=== PATIENT | female | born 1975 | race Caucasian/White ===

== ENCOUNTER 2016-11-06 19:42 | Emergency (ER) | payer OTHER ==
[~2016-11-06] VITALS: Ht 152.4 cm; Wt 85.9 kg
[~2016-11-06 19:42] MED LIST: CALC500T72 OR; FRRG PO; LRT5 PO; MULT-506 PO
[2016-11-06 19:43] VITALS: TEMP 37.1; Ht 152.4 cm; Wt 85.9 kg
[2016-11-06] MEDS ORDERED: CYAN10005 PO (20:01)
[2016-11-06] MEDS ORDERED: [UNRECOGNIZED DRUG - OTHER] PO (20:01)
[2016-11-06] MEDS ORDERED: CLR10 PO (20:01)
[2016-11-06] MEDS ORDERED: IBUPROFEN 200 MG TAB PO STA (20:21)
[2016-11-06] MEDS ORDERED: ACETAMINOPHEN 500 MG TAB PO STA (20:21)
--- NOTE | 2016-11-06 20:47 | DIAGNOSTIC IMAGING REPORT ---
L SHOULDER MIN 2 VIEWS ROUTINE CLINICAL HISTORY: shoulder pain pain COMPARISON: None. DISCUSSION: The bones and joint spaces appear intact. There is no evidence of fracture, dislocation or bony disease. There is no evidence for soft tissue swelling. IMPRESSION: Negative study. The above report was generated using voice recognition software. It may contain grammatical, syntax or spelling errors. Electronically signed by: Mathieu Garner M.D. 11/06/2016 8:45 PM Dictated Date/Time: 11/06/2016 8:45 PM
[2016-11-06 21:12] LABS: BASO % 0.3 %; BASO ABS # 0.03 K/uL (0-0.2); COMPLETE YES; EOS % 1.3 %; HEMATOCRIT 39.4 % (37-47); IG% 0.2 %; LYMPH ABS # 3.72 K/uL (1.2-3.4); MEAN CELL VOLUME 85.3 fL (80-100); MEAN CORPUSCULAR HEMOGLOBIN 29.7 pg (25-34); MEAN CORPUSCULAR HGB CONC 34.8 g/dl (32-36); MEAN PLATELET VOLUME 9.4 fL (7.4-10.4); MONO % 7.1 %; NEUT % 51.1 %; PLATELET COUNT 296 K/uL (130-400); RED BLOOD COUNT 4.62 M/uL (4.2-5.4); WHITE BLOOD COUNT 9.29 K/uL (4.8-10.8)
[2016-11-06 21:29] LABS: CALCIUM 9.2 mg/dl (8.5-10.1); CREATININE 0.83 mg/dl (0.60-1.20); POTASSIUM 3.6 mmol/L (3.5-5.1)
--- NOTE | 2016-11-06 21:38 | EMERGENCY ROOM VISIT NOTE ---
History Report prepared by Jennifer: Bobby Wild Under the Supervision of: Dr. Ermias Li M.D. First contact with patient: 19:47 Chief Complaint: ARM PAIN Stated Complaint: PAIN AND NUMBNESS IN LEFT ARM History of Present Illness The patient is a 41 year old white female with a past medical history who presents to the ED with a cc of worsening left arm pain and numbness beginning this morning. Numbness radiates from her hand to her shoulder. Describes pain as "achy". Symptoms worsened with gripping. Woke up with her symptoms. Positive left arm weakness. No history of similar symptoms in the arm. History of sciatica in lower extremities. Notes that she is right handed. No recent straining, or injury. 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 Typically rotates sides while sleeping. Negative cough, chest pain, SOB, no breast or shoulder swelling , fevers, diarrhea, urinary symptoms, joint pain, or chills. Cold-like symptoms earlier in the week. No personal history of blood clots. No family history of early cardiac disease. Source of History: patient Onset: This morning Position: arm (left) Quality: other (pain and numbness) Timing: worsening Modifying Factors (Worsening): other (gripping) Associated Symptoms: + weakness (LUE), No fevers, No chills, No cough, No chest pain, No SOB, No diarrhea, No urinary symptoms Note: Negative: breast or shoulder swelling, or joint pain. Review of Systems See HPI for pertinent positives and negatives. A total of ten systems were reviewed and were otherwise negative. Past Medical & Surgical Medical Problems: (1) Sciatica Family History No pertinent family history stated. Social History Smoking Status: Never Smoker Housing Status: lives with family Occupation Status: employed Current/Historical Medications Scheduled Cyanocobalamin (Vitamin B-12), 1,000 MCG PO DAILY Loratadine (Claritin), 10 MG PO DAILY [New Life], 1 TAB PO DAILY Scheduled PRN Oxycodone Immediate Rel Tab (Roxicodone Ir), 1 TAB PO TID PRN for Pain Tramadol (Ultram), 50 MG PO Q8H PRN for Pain Allergies Coded Allergies: Penicillins (Unverified Allergy, Mild, ., 04/04/09) Physical Exam Vital Signs Date Time Temp Pulse Resp B/P (MAP) Pulse Ox O2 Delivery O2 Flow Rate FiO2 11/06/16 22:34 98 18 138/79 96 Room Air 11/06/16 21:24 104 18 118/71 97 Room Air 11/06/16 19:43 37.1 107 18 140/67 95 Room Air Physical Exam GENERAL: Awake, alert, well-appearing, NAD HENT: Normocephalic, atraumatic. EYES: Normal conjunctiva. Sclera non-icteric. NECK: Supple. No nuchal rigidity. FROM. RESPIRATORY: CTAB, no rhonchi, wheezing, crackles CARDIAC: RRR, no MRG ABDOMEN: Soft, NTND, BS+ MSK: No chest wall TTP, no LE edema. Mild pain with abduction of the left arm. Mild reproducible anterior shoulder pain. Maybe trace weakness in centerless grinder tender strength compared to RUE likely secondary to pain. MUR nerves intact. No swelling. NEURO: GCS 15, CN 2-12 intact, moves all 4s on command. Positive Tinel's sign on the left. SKIN: No rash or jaundice noted. Medical Decision & Procedures ER Provider Diagnostic Interpretation: X-ray: Per my interpretation, radiologist review. L SHOULDER MIN 2 VIEWS ROUTINE DISCUSSION: The bones and joint spaces appear intact. There is no evidence of fracture, dislocation or bony disease. There is no evidence for soft tissue swelling. IMPRESSION: Negative study. The above report was generated using voice recognition software. It may contain grammatical, syntax or spelling errors. Electronically signed by: Mathieu Garner M.D. 11/06/2016 8:45 PM Laboratory Results 11/06/16 21:02 Red Blood Count 4.62, Mean Corpuscular Volume 85.3, Mean Corpuscular Hemoglobin 29.7, Mean Corpuscular Hemoglobin Concent 34.8, Mean Platelet Volume 9.4, Neutrophils (%) (Auto) 51.1, Lymphocytes (%) (Auto) 40.0, Monocytes (%) (Auto) 7.1, Eosinophils (%) (Auto) 1.3, Basophils (%) (Auto) 0.3, Neutrophils # (Auto) 4.74, Lymphocytes # (Auto) 3.72, Monocytes # (Auto) 0.66, Eosinophils # (Auto) 0.12, Basophils # (Auto) 0.03 11/06/16 21:02 Test 11/06/16 21:02 11/06/16 21:09 White Blood Count 9.29 K/uL (4.8-10.8) Red Blood Count 4.62 M/uL (4.2-5.4) Hemoglobin 13.7 g/dL (12.0-16.0) Hematocrit 39.4 % (37-47) Mean Corpuscular Volume 85.3 fL (80-100) Mean Corpuscular Hemoglobin 29.7 pg (25-34) Mean Corpuscular Hemoglobin Concent 34.8 g/dl (32-36) Platelet Count 296 K/uL (130-400) Mean Platelet Volume 9.4 fL (7.4-10.4) Neutrophils (%) (Auto) 51.1 % Lymphocytes (%) (Auto) 40.0 % Monocytes (%) (Auto) 7.1 % Eosinophils (%) (Auto) 1.3 % Basophils (%) (Auto) 0.3 % Neutrophils # (Auto) 4.74 K/uL (1.4-6.5) Lymphocytes # (Auto) 3.72 K/uL (1.2-3.4) Monocytes # (Auto) 0.66 K/uL (0.11-0.59) Eosinophils # (Auto) 0.12 K/uL (0-0.5) Basophils # (Auto) 0.03 K/uL (0-0.2) RDW Standard Deviation 38.5 fL (36.4-46.3) RDW Coefficient of Variation 12.3 % (11.5-14.5) Immature Granulocyte % (Auto) 0.2 % Immature Granulocyte # (Auto) 0.02 K/uL (0.00-0.02) Anion Gap 8.0 mmol/L (3-11) Est Creatinine Clear Calc Drug Dose 85.9 ml/min Estimated GFR () 100.8 Estimated GFR (Non- 87.0 BUN/Creatinine Ratio 22.0 (10-20) Calcium Level 9.2 mg/dl (8.5-10.1) Bedside Troponin I < 0.030 ng/ml (0-0.045) Laboratory results reviewed by me Medications Administered Medications (Trade) Dose Ordered Sig/Gary Route Start Time Stop Time Status Last Admin Dose Admin Ibuprofen (Advil Tab) 400 mg NOW STAT PO 11/06/16 20:21 11/06/16 20:23 DC 9/24/17 21:20 400 MG Acetaminophen (Tylenol Tab) 1,000 mg NOW STAT PO 11/06/16 20:21 11/06/16 20:23 DC 11/06/16 21:20 1,000 MG Prednisone (PredniSONE TAB) 50 mg ONE STAT PO 11/06/16 20:21 11/06/16 20:23 DC 11/06/16 21:20 50 MG Morphine Sulfate (MoRPHine SULFATE INJ) 4 mg NOW STAT IV 11/06/16 22:18 11/06/16 22:19 DC 11/06/16 22:33 4 MG Cyclobenzaprine HCl (Flexeril Tab) 10 mg ONE STAT PO 11/06/16 22:18 11/06/16 22:19 DC 11/06/16 22:34 10 MG ECG Indication: weakness (arm) Rate (beats per minute): 94 Rhythm: normal sinus Findings: T-wave inversion (single inversion in Lead 3. ), no ectopy, other ( Normal intervals. Normal axis. No other STS changes or TWI.) ED Course 2004: The patient was evaluated in room C12B. A complete history and physical exam was performed. 2134: I reevaluated the patient. Discussed results and discharge instructions: she verbalized understanding and agreement. The patient is ready for discharge. Medical Decision The patient is a 41 year old white female with a past medical history who presents to the ED with a cc of worsening left arm pain and numbness beginning this morning. Differential diagnosis: arthritis, atypical chest pain, radiculopathy, and carpal tunnel. Patient was seen and evaluated at the bedside. Patient was complaining of some radicular type pain likely originating in the wrist and excelling upward. Patient did have mild decreased strength but it was very trace likely related to pain. Patient is not taking anything prior to arrival. Patient denied any recent injury. Patient denies any early cardiac history and does not have any additional risk factors that she is a nonsmoker has no history of hypertension and hyperlipidemia. DVT is less likely as she doesn't have any swelling or redness. She's had no other provocative issues that make this more concerning. Patient did have a positive Tinel sign and thus she may have some median nerve compression. Patient was told to continue conservative management including better ergonomics especially when she types and he is a cockup wrist splint. Patient was also told to follow-up with her PCP as well as consider physical therapy, strengthening exercises, and possibly a referral to orthopedist if she has persistent symptoms. Patient as well as negative less likely DVT. Patient heart score less than 3 was likely ACS. Patient has no other infectious symptoms. Patient also did have pain with questionable decreased centerless grinder tender strength however this was likely related to pain. Patient's strength otherwise fairly symmetric. Less likely TIA or stroke specially given her lack of other risk factors. No h/o of autoimmune disease. Patient was given strict follow-up, discharge, and return precautions. Patient reported care patient was safely discharged home. Medication Reconcilliation Current Medication List: was personally reviewed by me Blood Pressure Screening Patient's blood pressure: Elevated blood pressure Blood pressure disposition: Elevated BP felt to be situational Impression Primary Impression: Radiculopathy Additional Impression: Pain, arm, left Scribe Attestation The scribe's documentation has been prepared under my direction and personally reviewed by me in its entirety. I confirm that the note above accurately reflects all work, treatment, procedures, and medical decision making performed by me. Departure Information Dispostion Home / Self-Care Prescriptions Oxycodone Immediate Rel Tab (ROXICODONE IR) 5 Mg Tab 1 TAB PO TID Y for Pain, #9 TAB Prov: Ermias Li M.D. 11/06/16 Tramadol (Ultram) 50 Mg Tab 50 MG PO Q8H Y for Pain, #12 TAB Prov: Ermias Li M.D. 11/06/16 Referrals No Doctor, Assigned (PCP) Patient Instructions Carpal Tunnel Syndrome Prevent, My [facility] Additional Instructions Please return to the emergency department if you have worsening or recurrent symptoms not amenable to at-home treatment. Please call for a follow-up appointment with her primary care physician. Please take your medications as prescribed. If you have other concerns and/or complaints please feel free to also call your primary care physician's office or return the ED for further evaluation, management, and treatment. You were found to have an elevated blood pressure today (>120 sytolic or >90 diastolic). Per medicare guidelines, you need to follow up with this blood pressure screening with your Primary Care Physician (PCP). For a new PCP call [phone]. You received narcotic or benzodiazepene medication while in the emergency room today. This is an addictive medication that may cause drowziness as well as constipation. Do not drive, operate heavy machinery, or drink alcohol under the influence of this medication. You may take 600 mg Ibuprofen every 6 hours as needed for pain with food for no more than 2 consecutive days. You may take tylenol 1000mg every 6 hours as needed for pain. You may take motrin and tylenol separately or at the same time. Take tramadol for breakthrough pain. You may also take roxicodone as needed for pain. Consider PT, wrist splint, and f/u w/ your PCP for further eval and treatment. You have been examined and treated today on an emergency basis only. This is not a substitute for, or an effort to provide, complete comprehensive medical care. It is impossible to recognize and treat all injuries or illnesses in a single emergency department visit. It is therefore important that you follow up closely with [facility]. Call as soon as possible for an appointment. Thank you for your time and consideration. I look forward to speaking with you again soon. Please don't hesitate to call us if you have any questions. Problem Qualifiers Primary Impression: Radiculopathy Spinal region: unspecified Qualified Codes: M54.10 - Radiculopathy, site unspecified
[2016-11-06] MEDS ORDERED: MoRPHine SULFATE 4 MG/ML 1 ML CARP\\VIAL IV STA (22:18)
[2016-11-06] MEDS ORDERED: CYCLOBENZAPRINE HCL 5 MG TAB PO STA (22:18)
[2016-11-06 22:34] VITALS: BP 138/79; PULSE 98; O2SAT 96
[2016-11-06] MEDS ORDERED: TRAM-10 PO (22:40)
[2016-11-06] MEDS ORDERED: OXYC1TAB3 PO (22:40)
== END 2016-11-06 23:24 | disposition home or self-care (01) ==
LOC: C.EDB 19:43 → C.EDC 23:24
DX: M54.10 Radiculopathy, site unspecified (principal); M79.602 Pain in left arm

== ENCOUNTER 2020-07-31 10:43 | Inpatient (IN) ==
[2020-07-31] MEDS ORDERED: POLYETHYLENE (MIRALAX) 17 GM PACK PO PRN (11:57)
[2020-07-31] MEDS ORDERED: ONDANSETRON INJ 2 MG/ML 2 ML VIAL IV PRN (11:57)
--- NOTE | 2020-07-31 12:33 | History & Physical Report ---
Date of Service July 31, 2020 Assessment & Plan (1) Cellulitis of chest wall: This is a 45-year-old female with PMH of GERD who presents from Dr. Neville's office with worsening chest wall cellulitis. Developed rash 5 days ago in setting of hiking and fresh water swimming in [facility], possible spider bite Started on Bactrim and Keflex 4 days ago with improvement of central area but worsening redness extending into axilla, continued subjective fever, chills, headache Tachycardic at 115. Afebrile, no leukocytosis. Lyme and anaplasma serology pending. Wound and blood cultures pending CXR with no acute process. EKG pending Continue empiric abx coverage with IV Dapto, added Doxycycline for possible tick borne illness Gentle IV fluids DVT Ppx: SQ lovenox Code status: FULL PCP: Molly Dispo: Admitted to [facility] Patient seen in collaboration with Dr. Goss. Please see addendum. Admission and Anticipated Discharge Date Admission Date: July 31, 2020 History of Present Illness Chief Complaint: Worsening chest wall cellulitis Primary Care Provider: Jefry Barnes MD This is a 45-year-old female with PMH of GERD who presents from Dr. Neville's office with worsening chest wall cellulitis. [facility] where she did a lot of hiking and swimming in [place] nearby [place]. First developed a reddish purple spot on chest 5 days ago that continued to grow in size and began to open up and drain clear fluid. Had associated fever with tmax of 101 F and chills. Has also had nausea and dull headache. Thought it se emed like a spider bite but did not see any spiders or ticks. Was evaluated in [facility] on 07/29 and diagnosed with chest wall cellulitis. Was discharged on Bactrim and Keflex. Has been taking medications regularly over the past 48 hours but area of redness doubled in size. Chest wall area is sore but not itchy. Drainage has resolved. Has been taking ibuprofen for fever symptoms. Denies any lightheadedness, chest pain, SOB, palpitations, vomiting, abdominal pain, diarrhea or constipation. Allergies Allergy/AdvReac Type Severity Reaction Status Date / Time Penicillins Allergy Mild . Unverified 04/04/09 15:05 Home Medications Medication Instructions Recorded Confirmed Type cephalexin 500 mg PO Q6H 10 Days #40 cap 07/28/20 07/31/20 Rx sulfamethoxazole-trimethoprim 1 tab PO Q12H 10 Days #20 tab 07/28/20 07/31/20 Rx [Bactrim DS] Lactobacillus acidophilus 100 mmu cells PO DAILY 07/31/20 07/31/20 History [Probiotic Acidophilus] cyanocobalamin (vitamin B-12) 1,000 mcg PO DAILY 07/31/20 07/31/20 History guaifenesin [Mucinex] 600 mg PO Q12H 07/31/20 07/31/20 History loratadine 10 mg PO DAILY 07/31/20 07/31/20 History multivitamin 1 tab PO DAILY 07/31/20 07/31/20 History Past Med/Surg History Medical History (Updated 07/31/20 @ 12:47 by Angelia Morales PA-C) GERD (gastroesophageal reflux disease) Tarsal tunnel syndrome Surgical History (Updated 07/31/20 @ 14:46 by Angelia Morales PA-C) H/O foot surgery S/P LEEP Family History (Updated 07/31/20 @ 14:46 by Angelia Morales PA-C) Other Cervical cancer Diabetes Stroke Social History (Updated 07/31/20 @ 12:51 by Angelia Morales PA-C) Smoking Status: Former smoker Second Hand Exposure: No; Do You Dip or Chew Tobacco: No; Hx Alcohol Use: Yes Alcohol type: wine Alcohol Intake Frequency: 2-4 x/Month Hx Substance Use: No Preferred Language: Estonian Communication Ability: Effective Teacher Of Gifted Students Required: No Beliefs That Will Affect Care: None Current Living Situation: Spouse Feels Safe at Home: Yes Safety Concerns: Feels Safe At This Time Assistive Devices: Glasses Review of Systems Review of Systems: At least ten systems reviewed and negative except as noted in the HPI. Physical Exam Physical Exam: General Appearance: WD/WN, vitals as above, NAD, sitting up in bed, pleasant, conversing easily Head: normocephalic, atraumatic Eyes: normal inspection, PERRL, conjunctivae normal, anicteric sclerae ENT: external ear and nose normal, oropharynx normal Neck: normal visual inspection, trachea midline, no thyromegaly Respiratory: normal respiratory effort, lungs clear to auscultation, no wheeze, rales, rhonchi. No accessory muscle use Cardiovascular: tachycardic rate, regular rhythm, no murmur appreciated, normal peripheral pulses, no BLE edema. Vessels: no JVD Abdomen/GI: normal bowel sounds, soft, nontender, no hepatosplenomegaly Extremities/Musculoskeletal: no cyanosis or clubbing, extremities motor strength 5/5 Neurologic: PERRL, EOMI, accommodation nl, no face palsy, no dysarthria, CN's II-XI intact bilaterally and moves all extremities Psychiatric: A+Ox3, euthymic affect Skin: normal color, warm/dry + R upper chest wall with small ulcerated lesion and surrounding intact vesicles with erythema extending [id number] into axilla. No LAD, no drainage. Warm to touch Results & Data Results & Data ([facility]) Laboratory Results Short CBC 07/31/20 Range/Units 13:11 WBC 6.28 (4.8-10.8) K/uL Hgb 12.7 (12.0-16.0) g/dL Hct 37.3 (37-47) % Plt Count 276 (130-400) K/uL BMP 07/31/20 13:11 Sodium 136 Potassium 4.3 Chloride 103 Carbon Dioxide 25 BUN 11 Creatinine 0.63 Glucose 81 Calcium 8.7 Liver Function 07/31/20 Range/Units 13:11 Total Bilirubin 0.3 (0.2-1) mg/dl AST 21 (15-37) U/L ALT 31 (12-78) U/L Alkaline Phosphatase 64 (45-117) U/L Albumin 4.0 (3.4-5.0) gm/dl Diagnostic Findings Chest X-Ray 07/31/20 12:02 XR chest 1V portable HISTORY: Admission chest x-ray. Spider bite. Right shoulder pain. COMPARISON: None. FINDINGS: The lungs are clear. Cardiac silhouette is normal in size. No pleural effusions. No pneumothorax. IMPRESSION: No acute process. ACT 112: Negative or not required by law. Electronically signed by: Rayshawn Wallace M.D. 07/31/2020 2:19 PM Code Status & VTE Plan VTE Prophylaxis Plan VTE Prophylaxis will be ordered: Yes Supervising Physician Co-Signing Physician Notes I have seen and examined the patient and have discussed the case with the provider above. I agree with the assessment and plan as stated. 45 yo F presenting with fevers, malaise and chest rash after visiting [facility] and being out in the [place]. Bactrim and Keflex was not helping her infection which has become more of a cellulitis/erythema migrans picture. No GI symptoms at this time. Tachycardic but no sepsis. Physical exam reveals palm-sized rash on the right lateral anterior chest wall with a central crusted lesion, very slight serous drainage. The wound is reportedly sore but not painful. Some cervical tenderness to lymph nodes but no significant cervical or axillary LAD present. Tachycardic with no murmurs, gallops or rubs heard on auscultation. Physical exam is otherwise normal. Agree with MRSA coverage with Dapto at this time and the addition of doxycycline given the appearance consistent with erythema migrans and possibility of rickettsial illness. DO Wolfgang
[2020-07-31 13:31] LABS: Basophils # (auto) 0.02 K/uL (0-0.2); Basophils % (auto) 0.3 %; Eosinophils # (auto) 0.26 K/uL (0-0.5); Eosinophils % (auto) 4.1 %; Hematocrit (blood only) 37.3 % (37-47); Hemoglobin 12.7 g/dL (12.0-16.0); Lymphocytes % (auto) 19.1 %; Mean Corpuscular Hemoglobin 29.7 pg (25-34); Mean Corpuscular Volume 87.4 fL (80-100); Mean Platelet Volume 9.5 fL (7.4-10.4); Monocytes # (auto) 0.86 K/uL (0.11-0.59); Monocytes % (auto) 13.7 %; Neutrophils # (auto) 3.94 K/uL (1.4-6.5); Neutrophils % (auto) 62.8 %; Platelet Count 276 K/uL (130-400); RDW Coefficient of Variation 12.4 % (11.5-14.5); RDW Standard Deviation 39.9 fL (36.4-46.3); Red Blood Count 4.27 M/uL (4.2-5.4); White Blood Count 6.28 K/uL (4.8-10.8)
[2020-07-31 14:17] LABS: BUN Creatinine Ratio 17.3 (10-20); Calcium 8.7 mg/dl (8.5-10.1); Est GFR (African American) 124.7 ml/min; Est GFR (Non-African American) 107.6 ml/min; Potassium 4.3 mmol/L (3.5-5.1)
[2020-07-31 14:20] LABS: Albumin Globulin Ratio 0.9 (0.9-2); Bilirubin,Total 0.3 mg/dl (0.2-1); Globulin 4.3 gm/dl (2.5-4.0); Total Protein 8.3 gm/dl (6.4-8.2)
--- NOTE | 2020-07-31 14:20 | XRay Report ---
XR chest 1V portable HISTORY: Admission chest x-ray. Spider bite. Right shoulder pain. COMPARISON: None. FINDINGS: The lungs are clear. Cardiac silhouette is normal in size. No pleural effusions. No pneumot horax. IMPRESSION: No acute process. ACT 112: Negative or not required by law. Electronically signed by: Rayshawn Wallace M.D. 07/31/2020 2:19 PM
[2020-07-31] MEDS ORDERED: SODIUM CHLORIDE 0.9% 1000ML 1,000 ML IV SCH (14:30)
[2020-07-31] MEDS: DOXYCYCLINE HYCLATE 100 MG in DEXTROSE 5% 100 ML IV SCH (14:57)
[2020-07-31 15:13] LABS: Lyme Ab IgG w/WB Rflx Negative (Negative)
[2020-07-31] MEDS: DAPTOmycin 200 MG in SYRINGE 0 ML IV SCH (15:30)
[2020-07-31 15:43] LABS: Lyme Ab IgM w/WB Rflx Equivocal (Negative)
[2020-07-31] MEDS: guaiFENesin 600 MG TABCR PO SCH ×2 (16:30→22:46)
[2020-07-31 18:12] LABS: Pregnancy Test, Urine Negative (Negative)
[2020-07-31] MEDS: ACETAMINOPHEN 325 MG TAB PO PRN (20:21)
[2020-08-01] MEDS: DOXYCYCLINE HYCLATE 100 MG in DEXTROSE 5% 100 ML IV SCH ×2 (05:16→16:15)
[2020-08-01 06:10] LABS: Hematocrit (blood only) 36.1 % (37-47); Hemoglobin 12.4 g/dL (12.0-16.0); Mean Corpuscular Hgb Conc 34.3 g/dL (32-36); Mean Corpuscular Volume 87.2 fL (80-100); Mean Platelet Volume 9.5 fL (7.4-10.4); Platelet Count 261 K/uL (130-400); RDW Coefficient of Variation 12.4 % (11.5-14.5); RDW Standard Deviation 39.9 fL (36.4-46.3); Red Blood Count 4.14 M/uL (4.2-5.4); White Blood Count 4.97 K/uL (4.8-10.8)
[2020-08-01 06:41] LABS: BUN Creatinine Ratio 16.3 (10-20); Calcium 7.9 mg/dl (8.5-10.1); Est GFR (African American) 123.4 ml/min; Est GFR (Non-African American) 106.5 ml/min; Potassium 4.7 mmol/L (3.5-5.1)
[2020-08-01] MEDS: guaiFENesin 600 MG TABCR PO SCH ×2 (08:13→20:41)
[2020-08-01] MEDS: LORATADINE 10 MG TAB PO SCH (08:14)
[2020-08-01] MEDS: CYANOCOBALAMIN 500 MCG TABLET (VITAMIN B-12) PO SCH (08:14)
[2020-08-01] MEDS: ADVANCED PROBIOTIC 1250 MG CAPSULE PO SCH (08:14)
[2020-08-01] MEDS: MULTIVITAMIN TAB PO SCH (08:14)
--- NOTE | 2020-08-01 10:54 | Hospitalist Progress Note ---
Date of Service August 01, 2020 Assessment & Plan (1) Cellulitis of chest wall: Rash consistent with erythema migrans secondary to Lyme disease. Lyme IgM is equivocal. Clinical picture consistent with a rickettsial illness. She is improving on doxycycline. She is also on daptomycin and this wound may have a secondary bacterial infection as a component. We will continue current antibiotics. Still awaiting Lyme Western blot and Anaplasma. If patient is still here Monday will consider infectious disease consult. (2) Erythema migrans (Lyme disease): (3) DVT (deep venous thrombosis): Lovenox Full Code Dispo-to home in 1-2 days. Edna Goss DO [facility] Hospitalist Admission and Anticipated Discharge Date Admission Date: July 31, 2020 Subjective 45 yo F presented with worsening chest wall cellullitis. Afebrile overnight Erythema is clearing Lyme IgM is equivocal Feeling generally better Tachycardia has improved Tolerating PO Review of Systems Review of Systems: All systems reviewed & are unremarkable except as noted in Subjective Physical Exam Physical Exam: CONSTITUTIONAL: WNWD, vitals as above, generally well- appearing EYES: normal conjunctivae, no scleral icterus ENT: external ear and nose normal, MMM RESPIRATORY: clear to auscultation bilaterally, no crackles, rales or wheezes, normal respiratory effort CARDIOVASCULAR: regular rate and rhythm, S1 and 2 heard without murmurs, gallops or rubs, no JVD, no peripheral edema CHEST: right anterior chest wall with receding erythema migrans surrounding crusted quarter sized lesion in center. No drainage, and no pus present. GASTROINTESTINAL: normal bowel sounds, soft, nontender, no hepatomegaly, no guarding MUSCULOSKELETAL: strength 5/5 throughout, head is normocephalic and atraumatic, neck supple, normal palpation of chest wall without tenderness SKIN: warm and dry, as above. NEUROLOGIC: CN 2-12 grossly intact, no sensory deficit, normal cognition, normal speech, no tremor PSYCHIATRIC: alert cooperative and oriented to person, place and time. Results & Data Results & Data ([facility]) Vital Signs (Past 12 Hours) Vital Signs Temp Pulse Pulse Resp BP Pulse Ox 08/01/20 07:55 36.7 C 92 H 19 113/75 99 08/01/20 07:54 86 08/01/20 03:28 36.9 C 86 16 110/71 95 07/31/20 23:30 97 H 06/18/21 22:48 37.0 C 98 H 17 111/66 95 Laboratory Results Short CBC 07/31/20 08/01/20 Range/Units 13:11 05:31 WBC 6.28 4.97 (4.8-10.8) K/uL Hgb 12.7 12.4 (12.0-16.0) g/dL Hct 37.3 36.1 L (37-47) % Plt Count 276 261 (130-400) K/uL BMP 07/31/20 08/01/20 13:11 05:31 Sodium 136 138 Potassium 4.3 4.7 Chloride 103 106 Carbon Dioxide 25 25 BUN 11 11 Creatinine 0.63 0.65 Glucose 81 92 Calcium 8.7 7.9 L Liver Function 07/31/20 Range/Units 13:11 Total Bilirubin 0.3 (0.2-1) mg/dl AST 21 (15-37) U/L ALT 31 (12-78) U/L Alkaline Phosphatase 64 (45-117) U/L Albumin 4.0 (3.4-5.0) gm/dl Medications Administered Current Inpatient Medications Acetaminophen (Acetaminophen 325 Mg Tab) 650 mg PO Q4H PRN PRN Reason: pain/fever Stop: 08/30/20 11:56 Last Admin: 07/31/20 20:21 Dose: 650 mg Documented by: Cyanocobalamin (Cyanocobalamin 500 Mcg Tablet (Vitamin B-12)) 1,000 mcg PO DAILY [facility] Stop: 08/31/20 08:59 Last Admin: 08/01/20 08:14 Dose: 1,000 mcg Documented by: Guaifenesin (Guaifenesin 600 Mg Tabcr) 600 mg PO Q12 YANI Stop: 08/30/20 15:44 Last Admin: 08/01/20 08:13 Dose: 600 mg Documented by: Doxycycline Hyclate 100 mg/ (Dextrose) 110 mls @ 50 mls/hr IV Q12H YANI Stop: 08/14/20 14:59 Last Infusion: 08/01/20 07:52 Dose: Infused Documented by: Daptomycin 200 mg/ Syringe 4 mls @ 2 mls/min IV Q24H [facility]; Protocol Stop: 08/07/20 15:59 Last Admin: 07/31/20 15:30 Dose: 2 mls/min Documented by: Lactobacillus Acidoph/Casei/Rhamnos (Advanced Probiotic 1250 Mg Capsule) 2 cap PO DAILY YANI Stop: 08/31/20 08:59 Last Admin: 08/01/20 08:14 Dose: 2 cap Documented by: Loratadine (Loratadine 10 Mg Tab) 10 mg PO DAILY YANI Stop: 08/31/20 08:59 Last Admin: 08/01/20 08:14 Dose: 10 mg Documented by: Miscellaneous Information (Daptomycin Consult Active) 1 ea N/A UD PRN PRN Reason: Consult Stop: 08/30/20 15:03 Multivitamins (Multivitamin Tab) 1 tab PO DAILY YANI Stop: 08/31/20 08:59 Last Admin: 08/01/20 08:14 Dose: 1 tab Documented by: Ondansetron HCl (Ondansetron Inj 2 Mg/Ml 2 Ml Vial) 4 mg IV Q6H PRN PRN Reason: Nausea Stop: 08/30/20 11:56 Polyethylene Glycol (Polyethylene (Miralax) 17 Gm Pack) 17 gm PO DAILY PRN PRN Reason: Constipation Stop: 08/30/20 11:56
--- NOTE | 2020-08-01 11:03 | Electrocardiogram Report ---
Test Reason : Blood Pressure : / mmHG Vent. Rate : 084 BPM Atrial Rate : 084 BPM P-R Int : 144 ms QRS Dur : 084 ms QT Int : 368 ms P-R-T Axes : 057 030 038 degrees QTc Int : 434 ms Normal sinus rhythm Normal ECG When compared with ECG of 06-NOV-2016 20:54, No significant change was found Confirmed by Zac Ortiz ([id number]) on 08/01/2020 11:03:13 AM Referred By: Edna Goss Confirmed By:Bola Ortiz
[2020-08-01] MEDS: DAPTOmycin 200 MG in SYRINGE 0 ML IV SCH (15:49)
[2020-08-01] MEDS: ACETAMINOPHEN 325 MG TAB PO PRN (20:42)
[2020-08-02 05:49] LABS: Hematocrit (blood only) 37.6 % (37-47); Hemoglobin 12.9 g/dL (12.0-16.0); Mean Corpuscular Hemoglobin 29.7 pg (25-34); Mean Corpuscular Hgb Conc 34.3 g/dL (32-36); Mean Corpuscular Volume 86.4 fL (80-100); Mean Platelet Volume 9.4 fL (7.4-10.4); Platelet Count 252 K/uL (130-400); RDW Coefficient of Variation 12.1 % (11.5-14.5); RDW Standard Deviation 38.6 fL (36.4-46.3); Red Blood Count 4.35 M/uL (4.2-5.4); White Blood Count 6.32 K/uL (4.8-10.8)
[2020-08-02 06:25] LABS: Calcium 8.2 mg/dl (8.5-10.1); Creatinine Clr Calc Pharmacy 116.1 ml/min; Est GFR (African American) 129.6 ml/min; Est GFR (Non-African American) 111.8 ml/min; Potassium 3.9 mmol/L (3.5-5.1)
[2020-08-02] MEDS ORDERED: DOXYCYCLINE HYCLATE 100 MG CAP PO SCH (09:00)
[2020-08-02] MEDS: ADVANCED PROBIOTIC 1250 MG CAPSULE PO SCH (09:27)
[2020-08-02] MEDS: CYANOCOBALAMIN 500 MCG TABLET (VITAMIN B-12) PO SCH (09:27)
[2020-08-02] MEDS: guaiFENesin 600 MG TABCR PO SCH (09:27)
[2020-08-02] MEDS: LORATADINE 10 MG TAB PO SCH (09:28)
[2020-08-02] MEDS: MULTIVITAMIN TAB PO SCH (09:28)
--- NOTE | 2020-08-02 12:06 | Discharge Summary ---
Date of Service August 02, 2020 Admission HPI Per Admitting Provider This is a 45-year-old female with PMH of GERD who presents from Dr. Neville's office with worsening chest wall cellulitis. Patient [facility] where she did a lot of hiking and swimming [place]. First developed a reddish purple spot on chest 5 days ago that continued to grow in size and began to open up and drain clear fluid. Had associated fever with tmax of 101 F and chills. Has also had nausea and dull headache. Thought it seemed like a spider bite but did not see any spiders or ticks. Was evaluated in [facility] ER on 07/29 and diagnosed with chest wall cellulitis. Was discharged on Bactrim and Keflex. Has been taking medications regularly over the past 48 hours but area of redness doubled in size. Chest wall area is sore but not itchy. Drainage has resolved. Has been taking ibuprofen for fever symptoms. Denies any lightheadedness, chest pain, SOB, palpitations, vomiting, abdominal pain, diarrhea or constipation. Admission Exam Per Admitting Provider General Appearance: WD/WN, vitals as above, NAD, sitting up in bed, pleasant, conversing easily Head: normocephalic, atraumatic Eyes: normal inspection, PERRL, conjunctivae normal, anicteric sclerae ENT: external ear and nose normal, oropharynx normal Neck: normal visual inspection, trachea midline, no thyromegaly Respiratory: normal respiratory effort, lungs clear to auscultation, no wheeze, rales, rhonchi. No accessory muscle use Cardiovascular: tachycardic rate, regular rhythm, no murmur appreciated, normal peripheral pulses, no BLE edema. Vessels: no JVD Abdomen/GI: normal bowel sounds, soft, nontender, no hepatosplenomegaly Extremities/Musculoskeletal: no cyanosis or clubbing, extremities motor strength 5/5 Neurologic: PERRL, EOMI, accommodation nl, no face palsy, no dysarthria, CN's II-XI intact bilaterally and moves all extremities Psychiatric: A+Ox3, euthymic affect Skin: normal color, warm/dry + R upper chest wall with small ulcerated lesion and surrounding intact vesicles with erythema extending [id number] into axilla. No LAD, no drainage. Warm to touch Principal Diagnosis Erythema migrans 2/2 Lyme disease Discharge Exam CONSTITUTIONAL: WNWD, vitals as above, generally well-appearing EYES: normal conjunctivae, no scleral icterus ENT: external ear and nose normal, MMM, slightly tender cervical LAD to palpation. RESPIRATORY: clear to auscultation bilaterally, no crackles, rales or wheezes, normal respiratory effort CARDIOVASCULAR: regular rate and rhythm, S1 and 2 heard without murmurs, gallops or rubs, no JVD, no peripheral edema CHEST: right anterior chest wall with almost completely resolved erythema migrans surrounding crusted quarter sized lesion in center. Still slightly pink. No drainage, and no pus present. GASTROINTESTINAL: normal bowel sounds, soft, nontender, no hepatomegaly, no guarding MUSCULOSKELETAL: strength 5/5 throughout, head is normocephalic and atraumatic, neck supple, normal palpation of chest wall without tenderness SKIN: warm and dry, as above. NEUROLOGIC: CN 2-12 grossly intact, no sensory deficit, normal cognition, normal speech, no tremor PSYCHIATRIC: alert cooperative and oriented to person, place and time. Discharge Data Allergies Allergy/AdvReac Type Severity Reaction Status Date / Time Penicillins Allergy Mild . Unverified 04/04/09 15:05 Ordered Studies Laboratory Results WBC 6.32 K/uL (4.8-10.8) 08/02/20 05:32 RBC 4.35 M/uL (4.2-5.4) 08/02/20 05:32 Hgb 12.9 g/dL (12.0-16.0) 08/02/20 05:32 Hct 37.6 % (37-47) 08/02/20 05:32 MCV 86.4 fL (80-100) 08/02/20 05:32 MCH 29.7 pg (25-34) 08/02/20 05:32 MCHC 34.3 g/dL (32-36) 08/02/20 05:32 RDW Std Deviation 38.6 fL (36.4-46.3) 08/02/20 05:32 RDW Coeff of Angel 12.1 % (11.5-14.5) 08/02/20 05:32 Plt Count 252 K/uL (130-400) 08/02/20 05:32 MPV 9.4 fL (7.4-10.4) 08/02/20 05:32 Immature Gran % (Auto) 0.0 % 07/31/20 13:11 Neut % (Auto) 62.8 % 07/31/20 13:11 Lymph % (Auto) 19.1 % 07/31/20 13:11 [place] % (Auto) 13.7 % 07/31/20 13:11 Eos % (Auto) 4.1 % 07/31/20 13:11 Baso % (Auto) 0.3 % 07/31/20 13:11 Neut # (Auto) 3.94 K/uL (1.4-6.5) 07/31/20 13:11 Lymph # (Auto) 1.20 K/uL (1.2-3.4) 07/31/20 13:11 [place] # (Auto) 0.86 K/uL (0.11-0.59) H 07/31/20 13:11 Eos # (Auto) 0.26 K/uL (0-0.5) 07/31/20 13:11 Baso # (Auto) 0.02 K/uL (0-0.2) 07/31/20 13:11 Immature Gran # (Auto) 0.00 K/uL (0.00-0.02) 07/31/20 13:11 Sodium 138 mmol/L (136-145) 08/02/20 05:32 Potassium 3.9 mmol/L (3.5-5.1) D 08/02/20 05:32 Chloride 106 mmol/L (98-107) 08/02/20 05:32 Carbon Dioxide 26 mmol/L (21-32) 08/02/20 05:32 Anion Gap 6.0 (3-11) 08/02/20 05:32 BUN 12 mg/dl (7-18) 08/02/20 05:32 Creatinine 0.56 mg/dl (0.6-1.2) L 08/02/20 05:32 Est Cr Clr Drug Dosing 116.1 ml/min 08/02/20 05:32 Est GFR ( Amer) 129.6 ml/min 08/02/20 05:32 Est GFR (Non-Af Amer) 111.8 ml/min 08/02/20 05:32 BUN/Creatinine Ratio 21.0 (10-20) H 08/02/20 05:32 Glucose 93 mg/dl (70-99) 08/02/20 05:32 Calcium 8.2 mg/dl (8.5-10.1) L 08/02/20 05:32 Total Bilirubin 0.3 mg/dl (0.2-1) 07/31/20 13:11 AST 21 U/L (15-37) 07/31/20 13:11 ALT 31 U/L (12-78) 07/31/20 13:11 Alkaline Phosphatase 64 U/L (45-117) 07/31/20 13:11 Total Protein 8.3 gm/dl (6.4-8.2) H 07/31/20 13:11 Albumin 4.0 gm/dl (3.4-5.0) 07/31/20 13:11 Globulin 4.3 gm/dl (2.5-4.0) H 07/31/20 13:11 Albumin/Globulin Ratio 0.9 (0.9-2) 07/31/20 13:11 Urine Test Negative (Negative) 07/31/20 17:38 Nasal Screen MRSA (PCR) Negative (Negative) 07/31/20 14:40 Lyme Disease IgG Ab Negative (Negative) 07/31/20 13:11 Lyme Disease IgM Ab Equivocal (Negative) A 07/31/20 13:11 COVID-19 Eval Order Covid19 at [facility] 07/31/20 18:05 SARS-CoV-2 (PCR) NEGATIVE (Negative) 07/31/20 18:05 Impressions Chest X-Ray 07/31/20 12:02 XR chest 1V portable HISTORY: Admission chest x-ray. Spider bite. Right shoulder pain. COMPARISON: None. FINDINGS: The lungs are clear. Cardiac silhouette is normal in size. No pleural effusions. No pneumothorax. IMPRESSION: No acute process. ACT 112: Negative or not required by law. Electronically signed by: Raysahwn Wallace M.D. 07/31/2020 2:19 PM Hospital Course (1) Erythema migrans (Lyme disease): (2) Cellulitis of chest wall: Rash consistent with erythema migrans secondary to Lyme disease. Lyme IgM is equivocal. Clinical picture consistent with a rickettsial illness. She is improving on doxycycline. She is also on daptomycin and this wound may have a secondary bacterial infection as a component. Still awaiting Lyme Western blot and Anaplasma at discharge. She was transitioned to oral doxycycline with close primary follow-up recommended. Total Time Total Time Spent Total Time Spent (In Minutes): 60 Total Time Includes: Examination of the Patient, Discharge Planning, Medication Reconciliation and Communication With Other Providers Discharge Plan Discharge Items Patient Disposition: Home - Self-Care Reason For Visit: CHEST WALL CELLULITIS Discharge Diagnosis: Erythema migrans 2/2 Lyme disease Condition on Discharge: Good Activity: Resume your previous activity Non-emergency contact: Primary Care Provider Call non-emergency contact if: you have any medication questions, your symptoms worsen, your pain is not controlled, your pain is worsening, your pain is unusual for you, you have a fever, your wound has increased redness, your wound has increased drainage and your wound pain has increased Follow-up/Referrals: Jefry Barnes MD [Primary Care Provider] - Diet: Regular Addtl Attending Provider Instructions: Mrs. Lauren, It is most likely that you developed acute Lyme disease. Please complete entire course of antibiotics as prescribed. Please take an additional 3 days of the BACTRIM you were previously prescribed in case of any bacterial superinfection. Of note, your wound and blood cultures were negative. Please follow-up with your primary care provider within one week of discharge home to ensure your rash is continuing to improve. Also, your tick-blood labs are still pending, and your PCP can review the final results with you at this time. It was a pleasure taking care of you! Please call if you have any questions or problems. You can reach a [facility] hospitalist on duty at [facility] 24 hours a day by calling [phone]. Take care of yourself. Edna Goss, [facility] Hospitalist Pending Studies at Discharge: Yes Studies:: Western blot and Anaplasma PCR Stand-Alone Forms: My [facility] Medications and DC Order Prescriptions: New doxycycline hyclate 100 mg Capsule 100 mg PO Q12 Qty: 40 RF: 0 Continued multivitamin Tablet 1 tab PO DAILY RF: 0 cyanocobalamin (vitamin B-12) 1,000 mcg Tablet 1,000 mcg PO DAILY RF: 0 loratadine 10 mg Capsule 10 mg PO DAILY RF: 0 Probiotic Acidophilus 1.5 mg (250 million cell) Capsule 100 mmu cells PO DAILY RF: 0 guaifenesin [Mucinex] 600 mg Tablet Extended Release 12hr 600 mg PO Q12H RF: 0 Discontinued cephalexin 500 mg capsule 500 mg PO Q6H 10 Days Qty: 40 RF: 0 Discharge Orders: Discharge Order (Routine); Ordered 08/02/20 Ordered By: Edna Moses/Other Patient Handouts: Preventing Lyme Disease, Tick Bites, ED Deep Vein Thrombosis (DVT), ED Lyme Disease Admission Data Admit Date/Time: 07/31/20 12:28 Attending Provider: Edna Goss Admit Provider: Edna Goss Primary Care Provider: Jefry Barnes Other Interventions: Discharge Summary Assessment (RN) Last Done: 08/02/20 12:27
[2020-08-05 05:51] LABS: 18KDIGG Band NON-REACTIVE; 23KDIGG Band NON-REACTIVE; 23KDIGM Band REACTIVE; 28KDIGG Band NON-REACTIVE; 30KDIGG Band NON-REACTIVE; 39KDIGG Band NON-REACTIVE; 39KDIGM Band NON-REACTIVE; 41KDIGG Band NON-REACTIVE; 41KDIGM Band NON-REACTIVE; 45KDIGG Band NON-REACTIVE; 58KDIGG Band NON-REACTIVE; 66KDIGG Band NON-REACTIVE; 93KDIGG Band NON-REACTIVE; Lyme Antibodies, WB IgG NEGATIVE (NEGATIVE); Lyme Antibodies, WB IgM NEGATIVE (NEGATIVE)
== END 2020-08-02 12:53 | disposition home or self-care (01) | DRG 868 ==
LOC: 2E 12:28 → 3W 08-01 09:36
DX: Z88.0 Allergy status to penicillin; A26.0 Cutaneous erysipeloid; Z87.891 Personal history of nicotine dependence; Z79.899 Other long term (current) drug therapy; A69.20 Lyme disease, unspecified